=== PATIENT | male | born 1965 | race Caucasian/White ===

== ENCOUNTER 2016-10-19 22:25 | Emergency (ER) | payer OTHER ==
[2016-10-19 22:34] VITALS: PULSE 56; O2SAT 96
--- NOTE | 2016-10-19 22:48 | CPEKG ---
Heart Rate: 53 RR Interval: 1132 P-R Interval: 188 QRSD Interval: 102 QT Interval: 452 QTC Interval: 425 P [place]: 71 QRS [place]: 74 T Wave [place]: 55 EKG Severity - NORMAL ECG - EKG Impression: SINUS RHYTHM EKG Impression: sinus bradycardia Electronically Signed By: Paulina Fraser 21-Oct-2016 14:10:11
[2016-10-19] MEDS ORDERED: DIAZEPAM 10 MG/2 ML SYR IVP ONE (23:15)
--- NOTE | 2016-10-19 23:27 | EDPHY ---
H & P Stated Complaint: L arm elbow tightness, wants to keep moving it-seen PA. HPI/ROS: This 50-year-old male with past medical history of bipolar disorder and heart murmur presents to emergency room today with his mother complaining of restlessness of his left upper extremity x 4 days. He states he can't keep his arm still. It feels irritated especially at night which is causing him to lose sleep. He denies any pain, numbness or tingling in his arm and the discomfort seems to arise from the posterior aspect of the left upper arm. He states it feels like pressure that builds up in his arm and last for a few seconds at a time. It has been constant but seems less severe during the day when he is moving around. He denies chest pain, back pain, neck pain, jaw pain, shortness of breath. He does not have a headache or dizziness. He has not had an acute or chronic neck injury. He has not had any new activities. He has had no recent illness and denies fever, chills, cough or any other issues. He is right handed. 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 He saw the PA, Shital Sotelo, for his PCP Dr. Rodriguez, today who prescribed Ropinirole 0.25mg, one to two tablets, at bedtime. He took two tablets at 6pm without significant relief. He also takes oxcarbamazepine (he does not remember the dose) but states he takes it twice a day, sertraline 1 tablet twice a day and lamotrigine 1 tablet twice a day. These medications are not new and the doses have not changed. His mother states both she and his father have no medical issues but his younger sister has had arm and leg jerking for about 5 years now and she is finally scheduled to see a neurologist this month. REVIEW OF SYSTEMS: Constitutional: No fever, no chills. Eyes: No discharge. ENT: No sore throat. Respiratory: No cough, no shortness of breath. Cardiac: No chest pain, no palpitations. Gastrointestinal: No abdominal pain, no vomiting. Musculoskeletal: No back pain. Skin: No rashes. Neurological: No headache. Source: Patient, Family (Mother), RN notes reviewed, Old records Exam Limitations: No limitations - Personal History Current Tetanus/Diphtheria Vaccine: Yes Tetanus Vaccine Date: 2008 - Medical/Surgical History PMH: Bipolar disorder, heart murmur Hx Asthma: No Hx Chronic Respiratory Disease: No Hx Diabetes: No Hx Cardiac Disease: No Hx Renal Disease: No Hx Cirrhosis: No Hx Alcoholism: No Hx HIV/AIDS: No Hx Splenectomy or Spleen Trauma: No Other PMH: history of bronchitis and sinusitis,MOOD DISORDER. L4/5 SURGERY FOR PINCHED NERVE, Irregular heart beat. 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 Eyes: Pupils equal and round no pallor or injection. ENT, Mouth: Mucous membranes moist. Respiratory: There are no retractions, lungs are clear to auscultation. Cardiovascular: Regular rate and rhythm. No murmur, gallops or rubs. Gastrointestinal: Abdomen is soft and nontender. Neurological: [ cranial nerves II-XII grossly intact, strength equal all 4 extremities. Circulation, motor, sensation intact and equal all 4 extremities.] Skin: Warm and dry, no rashes. Musculoskeletal: Neck and back is supple, nontender. Extremities are symmetrical, full range of motion. No tenderness or edema. Psychiatric: Patient is oriented X 3. Non focal exam. Agitated. No SI/HI. DIFFERENTIAL DIAGNOSIS: After history and physical exam differential diagnosis was considered for [ cardiac, electrolyte abnormality, thyroid disorder, medication side effect, rhabdo, psychiatric/stress.] Constitutional: Initial Vital Signs Temperature (C) 36.5 C 10/19/16 22:30 Heart Rate 56 L 10/19/16 22:30 Respiratory Rate 18 10/19/16 22:30 Blood Pressure 108/76 10/19/16 22:30 O2 Sat (%) 96 10/19/16 22:30 O2 Delivery Mode Room Air Allergies/Adverse Reactions: No Known Allergies Allergy (Verified 10/19/16 22:35) Home Medications: Medication Instructions Recorded Lamictal 07/14/14 Oxcarbazepine [Oxtellar Xr] 150 mg PO 07/14/14 Sertraline HCl 10/19/16 Diazepam [Valium 5 MG (*)] 5 mg PO TID PRN #15 tab 10/20/16 Medical Decision Making - Diagnostics EKG Interpretation: Sinus bradycardia heart rate 53, normal intervals, no acute ischemic changes. No old EKG seen for comparison. 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 States it still feels irritable though. Will administer Toradol 30mg IVP. Declines Head and Cervical Spine CT. CBC, comprehensive metabolic panel, CPK, and troponin are within normal limits. TSH is slightly elevated. Reflex free T4 added. Carbamazepine level pending ( sent to main lab). EKG shows a sinus bradycardia with normal intervals and no acute ischemic changes. Patient states arm is feeling better after the Toradol but would like more Valium before discharge. He was advised to call tomorrow to follow up with his primary care provider within the week. He was given a prescription for a short course of oral Valium. He was advised not to take this if he would be driving or operating heavy machinery etc. He should follow up on his thyroid studies and the carbamazepine level. He will return to the emergency room sooner if he has any further problems or concerns as discussed. - Data Points Laboratory Results: Laboratory Results 10/19/16 23:24 10/19/16 23:24 10/19/16 10/19/16 10/19/16 23:28 23:28 23:24 WBC RBC Hgb Hct MCV MCH MCHC RDW Plt Count MPV Neut % (Auto) Lymph % (Auto) Delta % (Auto) Eos % (Auto) Baso % (Auto) Nucleat RBC Rel Count Absolute Neuts (auto) Absolute Lymphs (auto) Absolute Monos (auto) Absolute Eos (auto) Absolute Basos (auto) Absolute Nucleated RBC Immature Gran % Immature Gran # Sodium 143 mEq/L mEq/L (134-144) Potassium 3.8 mEq/L mEq/L (3.5-5.2) Chloride 105 mEq/L mEq/L (97-110) Carbon Dioxide 23 mEq/l mEq/l (22-31) Anion Gap 15 mEq/L mEq/L (8-16) BUN 21 mg/dL mg/dL (7-23) Creatinine 1.0 mg/dL mg/dL (0.7-1.3) Estimated GFR > 60 Glucose 93 mg/dL mg/dL (70-100) Calcium 8.9 mg/dL mg/dL (8.5-10.4) Creatine Kinase 157 IU/L IU/L (0-224) Troponin I < 0.012 ng/mL ng/mL (0-0.034) TSH 9.700 uIU/mL H uIU/mL (0.465-4.680) Free T4 0.77 ng/dL ng/dL (0.59-2.19) Carbamazepine Pending Cancelled 10/19/16 23:24 WBC 5.01 10^3/uL 10^3/uL (3.80-9.50) RBC 4.40 10^6/uL 10^6/uL (4.40-6.38) Hgb 14.1 g/dL g/dL (13.7-17.5) Hct 39.3 % L % (40.0-51.0) MCV 89.3 fL fL (81.5-99.8) MCH 32.0 pg pg (27.9-34.1) MCHC 35.9 g/dL g/dL (32.4-36.7) RDW 12.0 % % (11.5-15.2) Plt Count 180 10^3/uL 10^3/uL (150-400) MPV 9.8 fL fL (8.7-11.7) Neut % (Auto) 51.7 % % (39.3-74.2) Lymph % (Auto) 35.7 % % (15.0-45.0) Delta % (Auto) 9.4 % % (4.5-13.0) Eos % (Auto) 2.4 % % (0.6-7.6) Baso % (Auto) 0.6 % % (0.3-1.7) Nucleat RBC Rel Count 0.0 % % (0.0-0.2) Absolute Neuts (auto) 2.59 10^3/uL 10^3/uL (1.70-6.50) Absolute Lymphs (auto) 1.79 10^3/uL 10^3/uL (1.00-3.00) Absolute Monos (auto) 0.47 10^3/uL 10^3/uL (0.30-0.80) Absolute Eos (auto) 0.12 10^3/uL 10^3/uL (0.03-0.40) Absolute Basos (auto) 0.03 10^3/uL 10^3/uL (0.02-0.10) Absolute Nucleated RBC 0.00 10^3/uL 10^3/uL (0-0.01) Immature Gran % 0.2 % % (0.0-1.1) Immature Gran # 0.01 10^3/uL 10^3/uL (0.00-0.10) Sodium Potassium Chloride Carbon Dioxide Anion Gap BUN Creatinine Estimated GFR Glucose Calcium Creatine Kinase Troponin I TSH Free T4 Carbamazepine Medications Given: Discontinued Medications Diazepam (Valium Injection) 2.5 mg IVP EDNOW ONE Stop: 10/19/16 23:16 Last Admin: 10/19/16 23:40 Dose: 2.5 mg Diazepam (Valium) 5 mg PO EDNOW ONE Stop: 10/20/16 00:44 Last Admin: 10/20/16 00:50 Dose: 5 mg Ketorolac Tromethamine (Toradol) 30 mg IVP EDNOW ONE Stop: 10/20/16 00:04 Last Admin: 10/20/16 00:15 Dose: 30 mg Departure - Departure Disposition: Home, Routine, Self-Care Clinical Impression: Restless arm Condition: Good Instructions: Diazepam (By mouth), Paresthesia (ED) Additional Instructions: Call tomorrow to set up a follow-up appointment with your primary care provider within 1 week. Have them follow up on your thyroid studies from the emergency department as well as the oxcarbamazepine level. Consider imaging of your head/ cervical spine if symptoms persist or any other testing as clinically indicated. Return to the emergency room sooner if any further problems or concerns. You were prescribed Valium to use as needed. Do not drive or operate heavy machinery when using this medication. Referrals: Vishnu Rodriguez DO [Primary Care Provider] - As per Instructions Stand Alone Forms: Work Excuse Prescriptions: Diazepam [Valium 5 MG (*)] 5 mg PO TID PRN #15 tab PRN Reason: Spasms
[2016-10-19 23:35] LABS: % IMMATURE GRANULYOCYTES 0.2 % (0.0-1.1); ABSOLUTE IMMATURE GRANULOCYTES 0.01 10^3/uL (0.00-0.10); ADD DIFF? NO; ADD MORPH? NO; ADD SCAN? NO; ATYPICAL LYMPHOCYTE FLAG 0 (0-99); FRAGMENT RBC FLAG 0 (0-99); HEMATOCRIT 39.3 % (40.0-51.0); HEMOGLOBIN 14.1 g/dL (13.7-17.5); LEFT SHIFT FLG 0 (0-99); LIPEMIA HEMOLYSIS FLAG 90 (0-99); MEAN CELL HEMOGLOBIN CONCENTR. 35.9 g/dL (32.4-36.7); MEAN CELL VOLUME 89.3 fL (81.5-99.8); MEAN PLATELET VOLUME 9.8 fL (8.7-11.7); PLATELET CLUMPS FLAG 0 (0-99); PLATELET COUNT 180 10^3/uL (150-400)
[2016-10-19 23:49] LABS: ANION GAP 15 mEq/L (8-16); CALCIUM 8.9 mg/dL (8.5-10.4); CARBON DIOXIDE 23 mEq/l (22-31); CHLORIDE 105 mEq/L (97-110); GLOMERULAR FILTRATION RATE > 60; GLUCOSE 93 mg/dL (70-100); POTASSIUM 3.8 mEq/L (3.5-5.2); SODIUM 143 mEq/L (134-144)
[2016-10-20] MEDS ORDERED: KETOROLAC 30 MG/1 ML SDV IVP ONE (00:03)
[2016-10-20 00:20] LABS: TROPONIN I < 0.012 ng/mL (0-0.034)
[2016-10-20] MEDS ORDERED: DIAZEPAM 5 MG TAB PO ONE (00:43)
[2016-10-20 01:24] VITALS: BP 106/72; RESP 12; TEMP 97.9
== END 2016-10-20 01:15 | disposition home or self-care (01) ==
LOC: CED 22:25
DX: M79.9 Soft tissue disorder, unspecified (principal)
CPT/HCPCS: 80048-PO; 82550-PO; 84439-PO; 84443-PO; 84484-PO; 85025-PO; 96374; J1885

== ENCOUNTER → 2017-07-25 | Outpatient (CLI) | payer OTHER | LOC: CIMAGING 10:45 | PROVIDERS: ATTEND Family Medicine | DX: J98.4 Other disorders of lung (principal) | CPT/HCPCS: 71046-PO ==